=== PATIENT | female | born 1940 | race Caucasian/White ===

== ENCOUNTER 2016-10-25 14:36 | Inpatient (IN) | payer BC, MEDICARE ==
[~2016-10-25] VITALS: Ht 165.1 cm; Wt 71.0 kg
[2016-10-25 14:37] VITALS: BP 140/97; PULSE 99; RESP 18; TEMP 97.9; O2SAT 96
[2016-10-25] MEDS ORDERED: SODIUM CHLOR 0.9% 1000 ML INJ 1,000 ML IV SCH (15:34)
--- NOTE | 2016-10-25 15:37 | PD ---
HPI Chief Complaint: GI Complaint Time Seen by Provider: 15:06 Travel History International Travel<30 days: No Contact w/Intl Traveler<30days: No Traveled to known affect area: No History of Present Illness HPI 76-year-old female with history of dementia, hypertension, here with her friend for evaluation of constipation no bowel movements for the patient believes he has been one month. Patient arrived here 2 days ago from [place] to visit her friend. She denies history of abdominal surgeries. No vomiting. She is having some mild abdominal discomfort. No rectal pain or bleeding. PFSH Past Medical History Alzheimer's Disease: Yes Cardiovascular Problems: Yes (HTN ) ?: Not Menopausal: Yes Past Surgical History Section: Yes (x2) Social History Alcohol Use: Yes (occasionally) Tobacco Use: No Substance Use: No Allergies-Medications (Allergen,Severity, Reaction): Coded Allergies: No Known Allergies (Unverified , 10/25/16) Review of Systems Except as stated in HPI: all other systems reviewed are Neg Physical Exam Narrative GENERAL: Well-developed, well-nourished, sitting comfortably on stretcher, no acute distress. SKIN: Focused skin assessment warm/dry. HEAD: Atraumatic. Normocephalic. EYES: Pupils equal and round. No scleral icterus. No injection or drainage. ENT: Mucous membranes pink and moist. CARDIOVASCULAR: Regular rate and rhythm. RESPIRATORY: No accessory muscle use. Clear to auscultation. Breath sounds equal bilaterally. GASTROINTESTINAL: Abdomen soft, nondistended. Mild diffuse tenderness without peritoneal signs. Normal bowel sounds. No hernias. RECTUM: Exam performed in the presence of a female nurse. External hemorrhoids present, no thrombosed hemorrhoids, no masses, no fissures, no rectal tenderness, no stool in rectal vault. MUSCULOSKELETAL: No obvious deformities. No clubbing. No cyanosis. No edema. NEUROLOGICAL: Awake and alert. No obvious cranial nerve deficits. Motor grossly within normal limits. Normal speech. PSYCHIATRIC: Appropriate mood and affect; insight and judgment normal. Data Data Last Documented VS Vital Signs Date Time Temp Pulse Resp B/P Pulse Ox O2 Delivery O2 Flow Rate FiO2 10/25/16 15:53 16 96 Room Air 10/25/16 14:37 97.9 99 140/97 Orders Complete Blood Count With Diff (10/25/16 15:34) Comprehensive Metabolic Panel (10/25/16 15:34) Lipase (10/25/16 15:34) Prothrombin Time / Inr (Pt) (10/25/16 15:34) Act Partial Throm Time (Ptt) (10/25/16 15:34) Ct Abd/Pel W Iv Contrast(Rout) (10/25/16 15:34) Iv Access Insert/Monitor (10/25/16 15:34) Ecg Monitoring (10/25/16 15:34) Oximetry (10/25/16 15:34) Sodium Chlor 0.9% 1000 Ml Inj (Ns 1000 M (10/25/16 15:34) Sodium Chloride 0.9% Flush (Ns Flush) (10/25/16 15:45) Oral Contrast - Adult (10/25/16 15:39) Diatrizoate Liq ( Gastroview Liq) (10/25/16 15:41) Urinalysis - C+S If Indicated (10/25/16 16:08) Iohexol 350 Inj (Omnipaque 350 Inj) (10/25/16 17:37) Ciprofloxacin 400 Mg Premix (Cipro 400 M (10/25/16 18:00) Metronidazole 500 Mg Inj (Flagyl 500 Mg (10/25/16 18:00) Labs Laboratory Tests Test 10/25/16 10/25/16 15:40 16:35 White Blood Count 10.1 TH/MM3 Red Blood Count 4.32 MIL/MM3 Hemoglobin 12.9 GM/DL Hematocrit 39.0 % Mean Corpuscular Volume 90.2 FL Mean Corpuscular Hemoglobin 29.9 PG Mean Corpuscular Hemoglobin 33.2 % Concent Red Cell Distribution Width 13.3 % Platelet Count 171 TH/MM3 Mean Platelet Volume 10.3 FL Neutrophils (%) (Auto) 67.5 % Lymphocytes (%) (Auto) 20.1 % Monocytes (%) (Auto) 9.8 % Eosinophils (%) (Auto) 1.9 % Basophils (%) (Auto) 0.7 % Neutrophils # (Auto) 6.8 TH/MM3 Lymphocytes # (Auto) 2.0 TH/MM3 Monocytes # (Auto) 1.0 TH/MM3 Eosinophils # (Auto) 0.2 TH/MM3 Basophils # (Auto) 0.1 TH/MM3 CBC Comment DIFF FINAL Differential Comment Prothrombin Time 10.5 SEC Prothromb Time International 1.0 RATIO Ratio Activated Partial 29.0 SEC Thromboplast Time Sodium Level 144 MEQ/L Potassium Level 4.2 MEQ/L Chloride Level 108 MEQ/L Carbon Dioxide Level 31.1 MEQ/L Anion Gap 5 MEQ/L Blood Urea Nitrogen 20 MG/DL Creatinine 0.83 MG/DL Estimat Glomerular Filtration 67 ML/MIN Rate Random Glucose 99 MG/DL Calcium Level 9.1 MG/DL Total Bilirubin 0.5 MG/DL Aspartate Amino Transf 22 U/L (AST/SGOT) Alanine Aminotransferase 28 U/L (ALT/SGPT) Alkaline Phosphatase 74 U/L Total Protein 7.5 GM/DL Albumin 3.2 GM/DL Lipase 251 U/L Urine Color YELLOW Urine Turbidity CLEAR Urine pH 5.0 Urine Specific [place] 1.025 Urine Protein NEG mg/dL Urine Glucose (UA) NEG mg/dL Urine Ketones NEG mg/dL Urine Occult Blood NEG Urine Nitrite NEG Urine Bilirubin NEG Urine Urobilinogen LESS THAN 2.0 MG/DL Urine Leukocyte Esterase TRACE Urine WBC 2 /hpf Urine Squamous Epithelial <1 /hpf Cells Urine Calcium Oxalate Crystals MOD /hpf Urine Mucus FEW /lpf Microscopic Urinalysis Comment CULT NOT INDICATED MDM Medical Decision Making Medical Screen Exam Complete: Yes Emergency Medical Condition: Yes Differential Diagnosis Constipation, colitis, diverticulitis, cystitis, bowel obstruction unlikely Narrative Course Vital signs reviewed. CBC is unremarkable. CMP is unremarkable. Lipase is 251. UA shows trace leukocyte esterase, moderate calcium oxalate crystals, few mucus , negative nitrites, not suggestive of UTI. CT abdomen pelvis: CONCLUSION: Acute moderate to severe sigmoid colon diverticulitis with a small intramural abscess. No drainable abscess. No perforation or obstruction. Case discussed with colorectal surgeon Dr. Westfall. Patient will be admitted to the medical service and she will see the patient in consultation. The patient and the patient's friend were made aware of all findings and plan for admission. Case discussed with hospitalist Dr. Fragoso who will admit the patient to her service. Diagnosis Primary Impression: Diverticulitis of intestine with abscess Qualified Code: K57.20 - Diverticulitis of large intestine with abscess, unspecified bleeding status Admitting Information Admitting Physician Requests: Admit Zana Gr MD October 25, 2016 15:37
[2016-10-25] MEDS ORDERED: DIATRIZOATE MEGLUM/DIATRIZOATE SOD 9 ML CUP ONE (15:41)
[2016-10-25] MEDS ORDERED: SODIUM CHLORIDE 0.9% FLUSH 10 ML FLUSH IV FLUSH PRN ×2 (15:45→20:15)
[2016-10-25 15:53] VITALS: RESP 16; O2SAT 96
[2016-10-25 16:28] LABS: AUTOMATED NEUTROPHIL # 6.8 TH/MM3 (1.8-7.7); BASOPHIL # 0.1 TH/MM3 (0-0.2); BASOPHIL % 0.7 % (0.0-2.0); EOSINOPHIL # 0.2 TH/MM3 (0-0.4); EOSINOPHIL % 1.9 % (0.0-4.0); HEMO FLAGS DIFF FINAL; LYMPH % 20.1 % (9.0-44.0); MEAN CELL VOLUME 90.2 FL (80.0-100.0); MEAN CORPUSCULAR HEMOGLOBIN 29.9 PG (27.0-34.0); MEAN CORPUSCULAR HGB CONC 33.2 % (32.0-36.0); MONO % 9.8 % (0.0-8.0); NEUT % 67.5 % (16.0-70.0); PLATELET COUNT 171 TH/MM3 (150-450); RED BLOOD COUNT 4.32 MIL/MM3 (4.00-5.30); RED CELL DISTRIBUTION WIDTH 13.3 % (11.6-17.2); WHITE BLOOD COUNT 10.1 TH/MM3 (4.0-11.0)
[2016-10-25 16:42] LABS: PROTHROMBIN TIME - PATIENT 10.5 SEC (9.8-11.6)
[2016-10-25 16:53] LABS: ANION GAP 5 MEQ/L (5-15); AST (GOT) 22 U/L (15-37); BICARBONATE 31.1 MEQ/L (21.0-32.0); BLOOD UREA NITROGEN 20 MG/DL (7-18); CHLORIDE 108 MEQ/L (98-107); GLOMERULAR FILTRATION RATE 67 ML/MIN (>89); POTASSIUM 4.2 MEQ/L (3.5-5.1); SODIUM (NA) 144 MEQ/L (136-145)
[2016-10-25 16:56] LABS: ALKALINE PHOSPHATASE 74 U/L (45-117); ALT (GPT) 28 U/L (10-53); TOTAL BILIRUBIN ADULT 0.5 MG/DL (0.2-1.0)
[2016-10-25 17:19] LABS: BLOOD, URINE NEG (NEG); CALCIUM OXALATE CRYSTALS,URINE MOD /hpf; COMMENT (UR) CULT NOT INDICATED; CULTURE IF INDICATED CULT NOT INDICATED; GLUCOSE,URINE NEG (NEG); KETONE, URINE NEG (NEG); MUCUS URINE FEW /lpf (OCC); NITRITE,URINE NEG (NEG); SQUAMOUS EPITHELIAL CELL URINE <1 /hpf (0-5); URINE COLOR YELLOW (YELLW/STRAW)
--- NOTE | 2016-10-25 17:35 | RADRPT ---
EXAM DATE/TIME: 10/25/2016 17:05 [facility] COMPARISON: No previous studies available for comparison. INDICATIONS : Abdomen pain. IV CONTRAST: 80 cc Omnipaque 350 (iohexol) IV ORAL CONTRAST: Prescribed oral contrast ingested. RADIATION DOSE: 5.61 CTDIvol (mGy) MEDICAL HISTORY : Cardiovascular disease. Alzheimer's. Hypertension. SURGICAL HISTORY : None. ENCOUNTER: Initial ACUITY: 3 days PAIN SCALE: 4/10 LOCATION: Bilateral abdomen. TECHNIQUE: Volumetric scanning of the abdomen and pelvis was performed. Using automated exposure control and ad justment of the mA and/or kV according to patient size, radiation dose was kept as low as reasonably achievable to obtain optimal diagnostic quality images. FINDINGS: LOWER LUNGS: The visualized lower lungs are clear. LIVER: Homogeneous density without lesion. There is no dilation of the biliary tree. No calcified gallston es. SPLEEN: Normal size without lesion. PANCREAS: Within normal limits. KIDNEYS: Normal in size and shape. There is no mass, stone or hydronephrosis. ADRENAL GLANDS: Within normal limits. VASCULAR: There is no aortic aneurysm. BOWEL/MESENTERY: Focal wall thickening and inflammatory changes are seen of the sigmoid colon in the setting of divert iculosis, compatible with moderate to severe acute diverticulitis. There is an approximately 12 x 23 x 12 mm rim-enhancing fluid and air collection within the wall of the sigmoid colon, series 2 image 7 0. No extraluminal abscess. ABDOMINAL WALL: Within normal limits. RETROPERITONEUM: There is no lymphadenopathy. BLADDER: No wall thickening or mass. REPRODUCTIVE: Within normal limits. INGUINAL: There is no lymphadenopathy or hernia. MUSCULOSKELETAL: Within normal limits for patient age. CONCLUSION: Acute moderate to severe sigmoid colon diverticulitis with a small intramural abscess. No drainable a bscess. No perforation or obstruction. Sergey Hernandez MD on October 25, 2016 at 17:31 Board Certified Radiologist. This report was verified electronically.
[2016-10-25] MEDS ORDERED: IOHEXOL 350 MG/ML 10 ML VIAL (for RAD DIAG) IV ONE (17:37)
[2016-10-25] MEDS ORDERED: metroNIDAZOLE 500 MG INJ 100 ML IV ONE (18:00)
[2016-10-25] MEDS ORDERED: CIPROFLOXACIN 400 MG PREMIX 200 ML IV ONE (18:00)
[2016-10-25 19:16] VITALS: BP 128/68; PULSE 93; RESP 18; TEMP 98.9; O2SAT 95
[2016-10-25] MEDS ORDERED: BISO5TAB2 PO (19:28)
[2016-10-25] MEDS ORDERED: CYAN5SUB SL (19:28)
[2016-10-25] MEDS ORDERED: MIRTA15 PO (19:28)
[2016-10-25] MEDS ORDERED: CALTTAB PO (19:28)
[2016-10-25] MEDS ORDERED: GLUC1CAP16 PO (19:28)
[2016-10-25] MEDS ORDERED: DENO60P SQ (19:28)
[2016-10-25] MEDS ORDERED: MEMA1TAB PO (19:28)
[2016-10-25] MEDS ORDERED: FISH500C PO (19:28)
[2016-10-25] MEDS ORDERED: ARIC10TA PO (19:28)
[2016-10-25] MEDS ORDERED: ATOR10TA15 PO (19:28)
[2016-10-25] MEDS ORDERED: BISACODYL 10 MG SUPP RECTAL PRN (20:15)
[2016-10-25] MEDS ORDERED: MORPHINE SULFATE 4 MG/ML INJ IV PRN ×2 (20:15)
[2016-10-25] MEDS ORDERED: ONDANSETRON HCL 4 MG/2 ML VIAL IVP PRN (20:15)
--- NOTE | 2016-10-25 20:19 | HHI.HP ---
[facility] No Primary Care Physician Admission Diagnosis acute diverticulitis with abscess Diagnoses: (1) Diverticulitis of intestine with abscess Diagnosis: Principal (2) Abdominal pain Diagnosis: Principal (3) Dehydration Diagnosis: Principal (4) HTN (hypertension) Diagnosis: Principal (5) Dementia Diagnosis: Principal Travel History International Travel<30 Days: No Contact w/Intl Traveler <30 Da: No Traveled to Known Affected Are: No History of Present Illness This is a 76-year-old female with a PMH of HTN, Hyperlipidemia and Dementia who presented to the ER with complaints of abdominal pain for approx 1month. Also notes constipation w/ no recent BM in approx 10 days. Recently arrived from [facility] to visit a friend and was urged by friend to seek medical attention. Denies fever, chills, nausea, vomiting or diarrhea. On arrival, BP 140/97, HR 99, O2 sat 96% on RA, Afebrile. Chemistry essentially unremarkable except for GFR 67, BUN 20. UA trace LAE. CT Abd/Pelvis w/ acute moderate to severe sigmoid colon diverticulitis with small intramural abscess. Dr. Westfall consulted by ER physician, will evaluate in a.m. for possible intervention/ drainage. S/p Cipro/Flagyl in ER. Review of Systems Except as stated in HPI: all other systems reviewed are Neg ROS: 14 point review of systems otherwise negative. Past Family Social History Past Medical History PMH: HTN, Hyperlipidemia and Dementia Past Surgical History PAST SURGICAL HISTORY: Allergies: Coded Allergies: No Known Allergies (Unverified , 10/25/16) Family History PAST FAMILY HISTORY: Reviewed. No h/o DM or CAD Social History PAST SOCIAL HISTORY: Occasional alcohol. Negative for tobacco or drugs. Physical Exam Vital Signs Vital Signs Date Time Temp Pulse Resp B/P Pulse Ox O2 Delivery O2 Flow Rate FiO2 10/25/16 19:16 98.9 93 18 128/68 95 10/25/16 15:53 16 96 Room Air 10/25/16 14:37 97.9 99 18 140/97 96 Room Air Physical Exam PE: GENERAL: Pleasant elderly white female in no acute distress. HEENT: PERRLA, EOMI. No scleral icterus or conjunctival pallor. No lid lag or facial droop. CARDIOVASCULAR: Regular rate and rhythm. No obvious murmurs to auscultation. No chest tenderness to palpation. RESPIRATORY: No obvious rhonchi or wheezing. Clear to auscultation. Breath sounds equal bilaterally. GASTROINTESTINAL: Abdomen soft, mild generalized tenderness to palpation, nondistended. BS normal. MUSCULOSKELETAL: Extremities without clubbing, cyanosis, or edema. No obvious deformities. NEUROLOGICAL: Awake, alert and oriented x4. No focal neurologic deficits. Moving both upper and lower extremities spontaneously. Laboratory Laboratory Tests Test 10/25/16 10/25/16 15:40 16:35 White Blood Count 10.1 Red Blood Count 4.32 Hemoglobin 12.9 Hematocrit 39.0 Mean Corpuscular Volume 90.2 Mean Corpuscular Hemoglobin 29.9 Mean Corpuscular Hemoglobin 33.2 Concent Red Cell Distribution Width 13.3 Platelet Count 171 Mean Platelet Volume 10.3 Neutrophils (%) (Auto) 67.5 Lymphocytes (%) (Auto) 20.1 Monocytes (%) (Auto) 9.8 Eosinophils (%) (Auto) 1.9 Basophils (%) (Auto) 0.7 Neutrophils # (Auto) 6.8 Lymphocytes # (Auto) 2.0 Monocytes # (Auto) 1.0 Eosinophils # (Auto) 0.2 Basophils # (Auto) 0.1 CBC Comment DIFF FINAL Differential Comment Prothrombin Time 10.5 Prothromb Time International 1.0 Ratio Activated Partial 29.0 Thromboplast Time Sodium Level 144 Potassium Level 4.2 Chloride Level 108 Carbon Dioxide Level 31.1 Anion Gap 5 Blood Urea Nitrogen 20 Creatinine 0.83 Estimat Glomerular Filtration 67 Rate Random Glucose 99 Calcium Level 9.1 Total Bilirubin 0.5 Aspartate Amino Transf 22 (AST/SGOT) Alanine Aminotransferase 28 (ALT/SGPT) Alkaline Phosphatase 74 Total Protein 7.5 Albumin 3.2 Lipase 251 Urine Color YELLOW Urine Turbidity CLEAR Urine pH 5.0 Urine Specific [place] 1.025 Urine Protein NEG Urine Glucose (UA) NEG Urine Ketones NEG Urine Occult Blood NEG Urine Nitrite NEG Urine Bilirubin NEG Urine Urobilinogen LESS THAN 2.0 Urine Leukocyte Esterase TRACE Urine WBC 2 Urine Squamous Epithelial <1 Cells Urine Calcium Oxalate Crystals MOD Urine Mucus FEW Microscopic Urinalysis Comment CULT NOT INDICATED Result Diagram: 5/21/17 1540 10/25/16 1540 Assessment and Plan Problem List: (1) Diverticulitis of intestine with abscess ICD Code: K57.80 Status: Acute (2) Abdominal pain ICD Code: R10.9 Status: Acute (3) Dehydration ICD Code: E86.0 Status: Acute (4) HTN (hypertension) ICD Code: I10 Status: Acute (5) Dementia ICD Code: F03.90 Status: Acute Assessment and Plan A/P: 1. Diverticulitis: Acute Diverticulitis w/ Intramural Abscess, seen on CT Abd/ Pelvis, images reviewed by me. Dr. Westfall consulted by ER physician, abscess appears amenable to drainage, will eval in am. S/p Cipro/Flagyl in ER, continue w/ IV Abx, analgesics/antiemetics as needed. 2. Abdominal Pain: Secondary to above, improved after pain medication, will continue as needed. 3. Dehydration: GFR 67, BUN 20, Creatinine normal. U/a negative for UTI. IVF for hydration, repeat labs in am. 4. HTN: Controlled. BP 120-140's systolic. Hold HCTZ for now in light of dehydration/low GFR. 5. DVT Prophylaxis: SCD/Teds. 6. Social work for d/c planning as needed. 7. Case discussed w/ ER physician at length. Physician Certification 2 Midnight Certification Type: Admission for Inpatient Services Order for Inpatient Services The services are ordered in accordance with Medicare regulations or non- Medicare payer requirements, as applicable. In the case of services not specified as inpatient-only, they are appropriately provided as inpatient services in accordance with the 2-midnight benchmark. Estimated LOS (days): 2 days is the estimated time the patient will need to remain in the hospital, assuming treatment plan goals are met and no additional complications. Post-Hospital Plan: Not yet determined Problem Qualifiers (1) Diverticulitis of intestine with abscess: Qualified Code: K57.20 - Diverticulitis of large intestine with abscess, unspecified bleeding status Chantelle Fragoso MD October 25, 2016 20:19
[2016-10-25] MEDS: SODIUM CHLORIDE 0.9% FLUSH 10 ML FLUSH IV FLUSH SCH (21:00)
[2016-10-25] MEDS: SODIUM CHLOR 0.9% 1000 ML INJ 1,000 ML IV SCH (21:41)
[2016-10-25] MEDS: MIRTAZAPINE 15 MG TAB PO SCH (21:41)
[2016-10-25 22:53] VITALS: BP 109/56; PULSE 87; RESP 18; TEMP 98.4; O2SAT 100
[2016-10-26 01:30] VITALS: BP 110/66; PULSE 96; RESP 16; TEMP 98.4; O2SAT 96
[2016-10-26] MEDS: metroNIDAZOLE 500 MG INJ 100 ML IV SCH ×3 (02:05→18:36)
[2016-10-26 04:00] VITALS: BP 109/63; PULSE 92; RESP 20; TEMP 98.5; O2SAT 94
[2016-10-26 05:15] LABS: AUTOMATED NEUTROPHIL # 5.4 TH/MM3 (1.8-7.7); BASOPHIL % 0.3 % (0.0-2.0); EOSINOPHIL # 0.2 TH/MM3 (0-0.4); EOSINOPHIL % 2.1 % (0.0-4.0); HEMO FLAGS DIFF FINAL; LYMPH % 20.9 % (9.0-44.0); LYMPHOCYTE # 1.7 TH/MM3 (1.0-4.8); MEAN CORPUSCULAR HEMOGLOBIN 30.3 PG (27.0-34.0); MONO % 10.9 % (0.0-8.0); NEUT % 65.8 % (16.0-70.0); PLATELET COUNT 149 TH/MM3 (150-450); RED BLOOD COUNT 3.94 MIL/MM3 (4.00-5.30); RED CELL DISTRIBUTION WIDTH 13.2 % (11.6-17.2); WHITE BLOOD COUNT 8.2 TH/MM3 (4.0-11.0)
[2016-10-26] MEDS: SODIUM CHLOR 0.9% 1000 ML INJ 1,000 ML IV SCH ×3 (05:15→23:41)
[2016-10-26 05:30] LABS: ALT (GPT) 27 U/L (10-53); ANION GAP 8 MEQ/L (5-15); AST (GOT) 23 U/L (15-37); BICARBONATE 27.5 MEQ/L (21.0-32.0); BLOOD UREA NITROGEN 11 MG/DL (7-18); CHLORIDE 110 MEQ/L (98-107); GLOMERULAR FILTRATION RATE 91 ML/MIN (>89); POTASSIUM 3.9 MEQ/L (3.5-5.1); SODIUM (NA) 145 MEQ/L (136-145)
[2016-10-26 05:32] LABS: ALKALINE PHOSPHATASE 69 U/L (45-117); TOTAL BILIRUBIN ADULT 0.4 MG/DL (0.2-1.0)
[2016-10-26 07:38] VITALS: BP 112/72; PULSE 90; RESP 18; TEMP 97.7; O2SAT 96
[2016-10-26] MEDS: SODIUM CHLORIDE 0.9% FLUSH 10 ML FLUSH IV FLUSH SCH ×2 (09:24→20:13)
[2016-10-26] MEDS: CIPROFLOXACIN 400 MG PREMIX 200 ML IV SCH ×2 (09:24→20:12)
[2016-10-26] MEDS: DONEPEZIL HCL 5 MG TAB PO SCH (09:24)
[2016-10-26] MEDS: MEMANTINE HCL 5 MG TAB PO SCH (09:51)
[2016-10-26 11:25] VITALS: BP 124/79; PULSE 81; RESP 18; TEMP 96; O2SAT 97
[2016-10-26 16:00] VITALS: BP 141/74; PULSE 96; RESP 18; TEMP 97.6; O2SAT 96
[2016-10-26] MEDS: ACETAMINOPHEN 325 MG TAB PO PRN ×2 (16:29→23:40)
--- NOTE | 2016-10-26 18:35 | HHI.PR ---
Subjective Remarks patient seen with good friend inside the room very anxious , currently denies any nausea or vomiting right now, no abdominal pain + flatus- states + constipation and strains during BM states had colonoscopy done in the past- + diverticuloses patient is hyperexcitable, volatile Objective Vitals Vital Signs Date Time Temp Pulse Resp B/P Pulse Ox O2 Delivery O2 Flow Rate FiO2 10/26/16 17:30 18 10/26/16 16:00 97.6 96 18 141/74 96 10/26/16 11:25 96.0 81 18 124/79 97 10/26/16 07:38 97.7 90 18 112/72 96 10/26/16 04:00 98.5 92 20 109/63 94 10/26/16 01:30 98.4 96 16 110/66 96 10/25/16 22:53 98.4 87 18 109/56 100 Room Air 10/25/16 19:16 98.9 93 18 128/68 95 I/O 10/25/16 10/25/16 10/25/16 10/26/16 10/26/16 10/26/16 07:00 15:00 23:00 07:00 15:00 23:00 Intake Total 600 ml Balance 600 ml Intake Oral 600 ml # Voids 1 2 # Bowel Movements 0 0 Result Diagram: 10/26/16 0409 10/26/16 0409 Imaging Last Impressions Abdomen/Pelvis CT 10/25/16 1534 Signed Impressions: Service Date/Time: Tuesday, October 25, 2016 17:05 - CONCLUSION: Acute moderate to severe sigmoid colon diverticulitis with a small intramural abscess. No drainable abscess. No perforation or obstruction. Sergey Hernandez MD Objective Remarks awake and alert, appears manic anicteric lungs clear regular rhythm abdomen soft, nontender, good bowel sounds, no guarding or rigidity extremities no edema A/P Problem List: (1) Diverticulitis of intestine with abscess ICD Code: K57.80 Status: Acute (2) Abdominal pain ICD Code: R10.9 Status: Acute (3) Dehydration ICD Code: E86.0 Status: Acute (4) HTN (hypertension) ICD Code: I10 Status: Acute (5) Dementia ICD Code: F03.90 Status: Acute Assessment and Plan 76 years old female, appears manic and highly excitable ? dementia. Had colonoscopies in the past - + diverticuloses per good friend Acute Diverticulitis w/ Intramural Abscess, seen on CT Abd/Pelvis. Dr. Westfall consulted. continue IV antibiotics. IVF. Abdominal Pain: - improved . prn pain medication, will continue as needed. Abdominal exam- benign Dehydration: GFR 67, BUN 20, Creatinine normal. U/a negative for UTI. IVF for hydration HTN: Controlled. BP 120-140's systolic. HCTZ for now in light of dehydration /low GFR. Atrial fibrillation, ? new onset. Monitor in telemetry. appears manic DVT Prophylaxis: SCD/Teds. patient up and ambulating Dementia-- appears in a manic state. friend travels around with her takes notes -. "volatile" per good friend. Monitor. d/w patient and best friend at bedside Problem Qualifiers (1) Diverticulitis of intestine with abscess: Qualified Code: K57.20 - Diverticulitis of large intestine with abscess, unspecified bleeding status Adria Borges MD October 26, 2016 18:35
[2016-10-26 20:00] VITALS: BP 132/81; PULSE 101; PULSE 93; RESP 16; TEMP 98; O2SAT 95
[2016-10-26] MEDS: MIRTAZAPINE 15 MG TAB PO SCH (20:12)
[2016-10-27] VITALS (15 sets, daily range): BP systolic 131–163; BP diastolic 64–113; PULSE 90–140; RESP 16–22; TEMP 95.8–98.1; O2SAT 93–96
[2016-10-27] MEDS: metroNIDAZOLE 500 MG INJ 100 ML IV SCH ×3 (02:04→18:06)
--- NOTE | 2016-10-27 06:00 | MB ---
cc: FRANCOIS SMITH M.D. DATE OF CONSULTATION October 26, 2016 CHIEF COMPLAINT Diverticulitis with abscess. HISTORY OF PRESENT ILLNESS The patient is a 76-year-old female who came to the emergency department yesterday with a history of chronic abdominal pain for about a month. She has a history of chronic constipation, and states she may not have had a bowel movement for up to a month. However, she does have some baseline dementia evidently. She had denies any nausea, vomiting, fevers, chills or diarrhea. She denies any melena or hematochezia. She has had a colonoscopy about three years ago which showed diverticulosis but no other abnormalities. She was evaluated in the emergency department and CT scan revealed evidence of moderate to severe diverticulitis with a small intramural abscess. PAST MEDICAL HISTORY 1. Hypertension. 2. Dementia. 3. Hyperlipidemia. PAST SURGICAL HISTORY . ALLERGIES None. MEDICATIONS See nurse's notes for details. SOCIAL HISTORY The patient denies any tobacco or illicit substances but does have occasional alcohol. REVIEW OF SYSTEMS The review of systems is negative for chest pain, shortness of breath, difficulty with mood, difficulty with ambulation or chronic pain syndrome. PHYSICAL EXAMINATION GENERAL: An elderly female who appears somewhat anxious. NEURO: Grossly intact. SKIN: Warm and dry. HEAD: Normocephalic, atraumatic. CARDIOVASCULAR: Regular rate. CHEST: Breathing is symmetric bilaterally, nonlabored. ABDOMEN: Soft, nondistended, mildly tender to palpation, worse in the left lower quadrant. There is no guarding or rebound. EXTREMITIES: No edema. LABORATORY WORK White count of 8.2, hemoglobin 11.9 and platelets of 149. Chemistry is essentially normal as are coags and urinalysis. IMPRESSION Diverticulitis with intramural abscess PLAN Because of the intramural nature of the abscess, I do think that bowel rest for another couple of days would be prudent. However, she will probably be able to be discharged within the next two or three days. The natural history of diverticulitis as well as the standard indications for diverticular surgery was discussed with the patient and her friend. Hopefully we can get her out of the hospital and she can heal and we can consider possible interval surgery down the road. If, however, she fails to improve or worsens, we may need to consider more emergent surgery. Thank you very much for your kind referral. MD HILARIO Coker/LESIA /6:18 PM /5:54 AM MTDDanielle
[2016-10-27] MEDS: CIPROFLOXACIN 400 MG PREMIX 200 ML IV SCH ×2 (07:39→20:36)
[2016-10-27] MEDS: MEMANTINE HCL 5 MG TAB PO SCH (07:41)
[2016-10-27] MEDS: DONEPEZIL HCL 5 MG TAB PO SCH (07:41)
[2016-10-27] MEDS: SODIUM CHLORIDE 0.9% FLUSH 10 ML FLUSH IV FLUSH SCH ×2 (07:43→21:00)
--- NOTE | 2016-10-27 09:12 | HHI.PR ---
Subjective Remarks Diverticulitis Confused, anxious, denies abdominal pain Objective Vital Signs Date Time Temp Pulse Resp B/P Pulse Ox O2 Delivery O2 Flow Rate FiO2 10/27/16 04:00 97.0 114 18 131/72 94 10/27/16 00:00 97.1 90 16 136/64 94 10/26/16 20:00 101 10/26/16 20:00 98.0 93 16 132/81 95 10/26/16 17:30 18 10/26/16 16:00 97.6 96 18 141/74 96 10/26/16 11:25 96.0 81 18 124/79 97 I/O 10/26/16 10/26/16 10/26/16 10/27/16 10/27/16 10/27/16 07:00 15:00 23:00 07:00 15:00 23:00 Intake Total 600 ml 480 ml 480 ml Balance 600 ml 480 ml 480 ml Intake Oral 600 ml 480 ml 480 ml # Voids 1 2 2 2 # Bowel Movements 0 0 1 Result Diagram: 10/26/16 0409 10/26/16 0409 Objective Remarks Abdomen soft, nondistended, minimally tender Assessment and Plan Assessment and Plan Would still go slow with PO - clears today, fulls tomorrow With intramural abscess, worry is if it bursts, could result in perforation Possibly home tomorrow or Radha Westfall MD October 27, 2016 09:12
[2016-10-27] MEDS: POLYETHYLENE GLYCOL 17 GM PKG PO SCH ×3 (11:03→18:03)
[2016-10-27] MEDS: SODIUM CHLOR 0.9% 1000 ML INJ 1,000 ML IV SCH (11:04)
--- NOTE | 2016-10-27 14:17 | HHI.PR ---
Subjective Remarks tachycardic but asymptomatic patient appears in a manic mode place on telemetry viewed meds- patient on Bisoprolol - 5 mg as OP /HCTZ 6.5 mg as OP-= not available here Objective Vitals Vital Signs Date Time Temp Pulse Resp B/P Pulse Ox O2 Delivery O2 Flow Rate FiO2 10/27/16 12:00 95.8 94 20 145/113 93 10/27/16 08:00 96.8 98 20 147/86 95 10/27/16 04:00 97.0 114 18 131/72 94 10/27/16 00:00 97.1 90 16 136/64 94 10/26/16 20:00 101 10/26/16 20:00 98.0 93 16 132/81 95 10/26/16 17:30 18 10/26/16 16:00 97.6 96 18 141/74 96 I/O 10/26/16 10/26/16 10/26/16 10/27/16 10/27/16 10/27/16 06:59 14:59 22:59 06:59 14:59 22:59 Intake Total 600 ml 480 ml 480 ml Balance 600 ml 480 ml 480 ml Intake Oral 600 ml 480 ml 480 ml # Voids 1 2 2 2 # Bowel Movements 0 0 1 Result Diagram: 10/26/16 0409 10/26/16 0409 Imaging Last Impressions Abdomen/Pelvis CT 10/25/16 1534 Signed Impressions: Service Date/Time: Tuesday, October 25, 2016 17:05 - CONCLUSION: Acute moderate to severe sigmoid colon diverticulitis with a small intramural abscess. No drainable abscess. No perforation or obstruction. Sergey Hernandez MD Objective Remarks awake and alert, appears manic anicteric lungs clear irregular rhythm HR variable abdomen soft, nontender, good bowel sounds, no guarding or rigidity extremities no edema A/P Problem List: (1) Diverticulitis of intestine with abscess ICD Code: K57.80 Status: Acute (2) Abdominal pain ICD Code: R10.9 Status: Acute (3) Dehydration ICD Code: E86.0 Status: Acute (4) HTN (hypertension) ICD Code: I10 Status: Acute (5) Dementia ICD Code: F03.90 Status: Acute Assessment and Plan 76 years old female, appears manic and highly excitable ? dementia. Had colonoscopies in the past - + diverticuloses per good friend Acute Diverticulitis w/ Intramural Abscess, seen on CT Abd/Pelvis. Dr. Westfall consulted. continue IV antibiotics. IVF. Cipro/Flagyl. Start clears. Abdominal Pain: - improved . prn pain medication, will continue as needed. Abdominal exam- benign Dehydration: GFR 67, BUN 20, Creatinine normal. U/a negative for UTI. IVF for hydration HTN: - some elevated readings BP 120-140's systolic. Hold HCTZ for now in light of dehydration/low GFR. r Atrial fibrillation- rate variable ? new onset. start on BB- Lopressor 12.5 mg po q 8 with hold parameters. Patient was on Bisoprolol/HCTZ 5 mg/6.25 mg po combination as OP check TSH DVT Prophylaxis: SCD/Teds. patient up and ambulating Dementia-- appears in a manic state. friend travels around with her takes notes -. "volatile" per good friend. Monitor. d/w patient and best friend at bedside Problem Qualifiers (1) Diverticulitis of intestine with abscess: Qualified Code: K57.20 - Diverticulitis of large intestine with abscess, unspecified bleeding status Adria Borges MD October 27, 2016 14:16
[2016-10-27] MEDS ORDERED: PILL SPLITTER OTHER PRN (14:45)
[2016-10-27] MEDS ORDERED: LORazepam 2 MG/ML VIAL IV PUSH ONE (14:45)
[2016-10-27] MEDS: METOPROLOL TARTRATE 25 MG TAB PO SCH ×2 (15:40→21:19)
[2016-10-27] MEDS: ACETAMINOPHEN 325 MG TAB PO PRN (18:27)
[2016-10-27] MEDS: MIRTAZAPINE 15 MG TAB PO SCH (21:19)
[2016-10-28] VITALS (24 sets, daily range): BP systolic 127–159; BP diastolic 60–101; PULSE 80–120; RESP 16–24; TEMP 97.9–98.5; O2SAT 91–96
[2016-10-28] MEDS: POLYETHYLENE GLYCOL 17 GM PKG PO SCH ×4 (00:02→16:54)
[2016-10-28] MEDS: SODIUM CHLOR 0.9% 1000 ML INJ 1,000 ML IV SCH ×2 (02:14→08:36)
[2016-10-28] MEDS: metroNIDAZOLE 500 MG INJ 100 ML IV SCH ×3 (02:14→17:10)
[2016-10-28] MEDS: METOPROLOL TARTRATE 25 MG TAB PO SCH ×3 (06:16→20:16)
--- NOTE | 2016-10-28 07:50 | HHI.PR ---
Subjective Remarks Diverticulitis comfortable Objective Vital Signs Date Time Temp Pulse Resp B/P Pulse Ox O2 Delivery O2 Flow Rate FiO2 10/28/16 06:00 97 10/28/16 05:00 92 10/28/16 04:00 89 10/28/16 03:30 97.9 109 20 138/93 95 10/28/16 03:00 94 10/28/16 02:00 86 10/28/16 01:00 90 10/28/16 00:00 98.2 98 20 155/99 91 10/28/16 00:00 100 10/27/16 23:00 94 10/27/16 22:00 94 10/27/16 21:00 102 10/27/16 20:00 98.1 93 20 146/83 94 10/27/16 20:00 96 10/27/16 19:00 110 10/27/16 18:00 103 10/27/16 17:00 94 10/27/16 16:20 104 10/27/16 16:15 96 18 146/99 96 10/27/16 15:31 97.1 116 20 163/86 95 10/27/16 15:00 140 22 146/100 95 10/27/16 12:00 95.8 94 20 145/113 93 10/27/16 08:00 96.8 98 20 147/86 95 I/O 10/27/16 10/27/16 10/27/16 10/28/16 10/28/16 10/28/16 07:00 15:00 23:00 07:00 15:00 23:00 Intake Total 480 ml 240 ml 1780 ml Output Total 300 ml Balance 480 ml 240 ml 1480 ml Intake Oral 480 ml 240 ml 480 ml IV Total 1300 ml Output Urine Total 300 ml # Voids 2 4 2 # Bowel Movements 1 2 2 Result Diagram: 10/26/16 0409 10/26/16 0409 Objective Remarks Abdomen soft, nondistended, nontender Assessment and Plan Assessment and Plan Try full liquid today, if tolerates low residue diet this pm Possible discharge tomorrow Radha Westfall MD October 28, 2016 07:50
[2016-10-28] MEDS: DONEPEZIL HCL 5 MG TAB PO SCH (08:35)
[2016-10-28] MEDS: ACETAMINOPHEN 325 MG TAB PO PRN (08:35)
[2016-10-28] MEDS: MEMANTINE HCL 5 MG TAB PO SCH (08:35)
[2016-10-28] MEDS: SODIUM CHLORIDE 0.9% FLUSH 10 ML FLUSH IV FLUSH SCH ×2 (08:36→20:16)
[2016-10-28] MEDS: CIPROFLOXACIN 400 MG PREMIX 200 ML IV SCH ×2 (08:39→20:00)
[2016-10-28 09:12] LABS: BICARBONATE 22.1 MEQ/L (21.0-32.0); POTASSIUM 3.2 MEQ/L (3.5-5.1)
--- NOTE | 2016-10-28 09:18 | HHI.PR ---
Subjective Remarks no complains seen with friend at bedside Objective Vitals Vital Signs Date Time Temp Pulse Resp B/P Pulse Ox O2 Delivery O2 Flow Rate FiO2 10/28/16 06:00 97 10/28/16 05:00 92 10/28/16 04:00 89 10/28/16 03:30 97.9 109 20 138/93 95 10/28/16 03:00 94 10/28/16 02:00 86 10/28/16 01:00 90 10/28/16 00:00 98.2 98 20 155/99 91 10/28/16 00:00 100 10/27/16 23:00 94 10/27/16 22:00 94 10/27/16 21:00 102 10/27/16 20:00 98.1 93 20 146/83 94 10/27/16 20:00 96 10/27/16 19:00 110 10/27/16 18:00 103 10/27/16 17:00 94 10/27/16 16:20 104 10/27/16 16:15 96 18 146/99 96 10/27/16 15:31 97.1 116 20 163/86 95 10/27/16 15:00 140 22 146/100 95 10/27/16 12:00 95.8 94 20 145/113 93 I/O 10/27/16 10/27/16 10/27/16 10/28/16 10/28/16 10/28/16 07:00 15:00 23:00 07:00 15:00 23:00 Intake Total 480 ml 240 ml 1780 ml Output Total 300 ml Balance 480 ml 240 ml 1480 ml Intake Oral 480 ml 240 ml 480 ml IV Total 1300 ml Output Urine Total 300 ml # Voids 2 4 2 # Bowel Movements 1 2 2 Result Diagram: 10/26/16 0409 10/28/16 0800 Imaging Last Impressions Abdomen/Pelvis CT 10/25/16 1534 Signed Impressions: Service Date/Time: Tuesday, October 25, 2016 17:05 - CONCLUSION: Acute moderate to severe sigmoid colon diverticulitis with a small intramural abscess. No drainable abscess. No perforation or obstruction. Sergey Hernandez MD Objective Remarks awake and alert, anicteric lungs clear irregular rhythm HR variable abdomen soft, nontender, good bowel sounds, no guarding or rigidity extremities no edema neuro exam- unremarkable A/P Problem List: (1) Diverticulitis of intestine with abscess ICD Code: K57.80 Status: Acute (2) Abdominal pain ICD Code: R10.9 Status: Acute (3) Dehydration ICD Code: E86.0 Status: Acute (4) HTN (hypertension) ICD Code: I10 Status: Acute (5) Dementia ICD Code: F03.90 Status: Acute Assessment and Plan 76 years old female, appears manic and highly excitable ? dementia. Had colonoscopies in the past - + diverticuloses per good friend Acute Diverticulitis w/ Intramural Abscess, seen on CT Abd/Pelvis. Dr. Westfall consulted. continue IV antibiotics. IVF. Advance diet- full liquids Abdominal Pain: - improved . prn pain medication, will continue as needed. Abdominal exam- benign Dehydration: GFR 67, BUN 20, Creatinine normal. U/a negative for UTI. IVF for hydration HTN: Controlled. BP 120-140's systolic. HCTZ for now in light of dehydration /low GFR. as OP was on Biso/HCTZ combination Atrial fibrillation, ? new onset. Monitor in telemetry. - started on Lopressor= adjust. start ASA. check TSH Hypokalemia- replace DVT Prophylaxis: SCD/Teds. patient up and ambulating Dementia-- appears in a manic state. friend travels around with her takes notes -. "volatile" per good friend. Monitor. d/w patient and best friend at bedside needs to set up with a PCP in [place]- when arrived there Problem Qualifiers (1) Diverticulitis of intestine with abscess: Qualified Code: K57.20 - Diverticulitis of large intestine with abscess, unspecified bleeding status Adria Borges MD October 28, 2016 09:17
[2016-10-28] MEDS: ASPIRIN EC 325 MG TABEC PO SCH (09:49)
[2016-10-28] MEDS: NS + KCL 20 MEQ INJ 1,000 ML IV SCH (09:49)
[2016-10-28] MEDS ORDERED: POTASSIUM CHLORIDE 10 MEQ CONTROLLED RELEASE TAB PO ONE (10:00)
--- NOTE | 2016-10-28 19:32 | EKG ---
Date Performed: 10/28/2016 Time Performed: 00:06:02 PTAGE: 76 years EKG: Atrial fibrillation Possible anteroseptal infarct - age undetermined Inferior/lateral ST-T changes are nonspecific Generalized low QRS voltages Abnormal ECG NO PREVIOUS TRACING DOCTOR: Nany Brennan Interpretating Date/Time 10/28/2016 19:31:27
[2016-10-28] MEDS: MIRTAZAPINE 15 MG TAB PO SCH (20:16)
[2016-10-28] MEDS ORDERED: POTASSIUM CHLORIDE 20 MEQ CONTROLLED RELEASE TAB PO ONE (21:00)
[2016-10-29] VITALS (22 sets, daily range): BP systolic 131–161; BP diastolic 66–107; PULSE 88–150; RESP 18–20; TEMP 97.9–98.5; O2SAT 94–96
[2016-10-29] MEDS: metroNIDAZOLE 500 MG INJ 100 ML IV SCH ×2 (02:00→10:01)
[2016-10-29] MEDS: METOPROLOL TARTRATE 25 MG TAB PO SCH (06:00)
[2016-10-29] MEDS: POLYETHYLENE GLYCOL 17 GM PKG PO SCH ×2 (06:00)
[2016-10-29 06:39] LABS: BICARBONATE 23.1 MEQ/L (21.0-32.0); POTASSIUM 3.9 MEQ/L (3.5-5.1)
[2016-10-29] MEDS: ACETAMINOPHEN 325 MG TAB PO PRN (06:47)
[2016-10-29] MEDS: CIPROFLOXACIN 400 MG PREMIX 200 ML IV SCH (08:38)
[2016-10-29] MEDS: ASPIRIN EC 325 MG TABEC PO SCH (08:38)
[2016-10-29] MEDS: MEMANTINE HCL 5 MG TAB PO SCH (08:38)
[2016-10-29] MEDS: DONEPEZIL HCL 5 MG TAB PO SCH (08:39)
[2016-10-29] MEDS: SODIUM CHLORIDE 0.9% FLUSH 10 ML FLUSH IV FLUSH SCH (08:41)
[2016-10-29] MEDS: NS + KCL 20 MEQ INJ 1,000 ML IV SCH (09:49)
[2016-10-29] MEDS ORDERED: METOPROLOL TARTRATE 25 MG TAB PO ONE ×2 (10:45→15:00)
[2016-10-29] MEDS ORDERED: DILTIAZEM HCL 25 MG/5 ML VIAL IV ONE (10:45)
--- NOTE | 2016-10-29 10:53 | HHI.PR ---
Subjective Remarks no complains of abdominal pain, nausea or vomiting telemetry reviewed- HR ranges from 90s- low 100s very agitated Objective Vitals Vital Signs Date Time Temp Pulse Resp B/P Pulse Ox O2 Delivery O2 Flow Rate FiO2 10/29/16 08:46 98.4 109 20 145/104 95 10/29/16 06:12 115 10/29/16 05:00 103 10/29/16 04:30 98.5 113 18 161/107 96 10/29/16 04:03 110 10/29/16 02:09 118 10/29/16 01:00 107 10/29/16 00:00 98 10/29/16 00:00 98.3 103 18 131/66 96 10/28/16 23:00 98 10/28/16 22:00 96 10/28/16 21:00 100 10/28/16 20:00 120 10/28/16 20:00 98.5 119 24 159/101 96 10/28/16 19:00 110 10/28/16 18:03 115 10/28/16 17:07 97 10/28/16 16:14 89 10/28/16 15:12 98.0 107 16 127/74 94 10/28/16 15:12 101 10/28/16 14:00 95 10/28/16 13:59 98 10/28/16 12:37 96 10/28/16 11:27 98.3 102 16 149/97 95 10/28/16 11:27 99 I/O 10/28/16 10/28/16 10/28/16 10/29/16 10/29/16 10/29/16 07:00 15:00 23:00 07:00 15:00 23:00 Intake Total 1780 ml 710 ml 1334 ml Output Total 300 ml 650 ml Balance 1480 ml 710 ml 684 ml Intake Oral 480 ml 360 ml 480 ml IV Total 1300 ml 350 ml 854 ml Output Urine Total 300 ml 650 ml # Voids 2 3 # Bowel Movements 2 2 Result Diagram: 10/26/16 0409 10/29/16 0418 Imaging Last Impressions Abdomen/Pelvis CT 10/25/16 1534 Signed Impressions: Service Date/Time: Tuesday, October 25, 2016 17:05 - CONCLUSION: Acute moderate to severe sigmoid colon diverticulitis with a small intramural abscess. No drainable abscess. No perforation or obstruction. Sergey Hernandez MD Objective Remarks awake and alert, appears manic anicteric lungs clear irregular rhythm HR variable abdomen soft, nontender, good bowel sounds, no guarding or rigidity extremities no edema neuro exam- unremarkable A/P Problem List: (1) Diverticulitis of intestine with abscess ICD Code: K57.80 Status: Acute (2) Abdominal pain ICD Code: R10.9 Status: Acute (3) Dehydration ICD Code: E86.0 Status: Acute (4) HTN (hypertension) ICD Code: I10 Status: Acute (5) Dementia ICD Code: F03.90 Status: Acute Assessment and Plan 76 years old female, appears manic and highly excitable ? dementia. Had colonoscopies in the past - + diverticuloses per good friend Acute Diverticulitis w/ Intramural Abscess, seen on CT Abd/Pelvis. Dr. Westfall ff continue IV antibiotics. IVF. Advance diet tolerating well Dehydration: GFR 67, BUN 20, Creatinine normal. resolved. tolerating diet Atrial fibrillation,new onset. in RVR - exacerbated by her emotional/mental state Increase Lopressor to 25 mg po q 8. give Cardizem 20 mg IVP x 1 start drip . cardiology consult. get Echo. ?recommendation need for OAC. ?Candidate History of hypertension was on Bisoprolol/HCTz as OP. now on BB-and CCB for above Hypokalemia- corrected DVT Prophylaxis: SCD/Teds. patient up and ambulating Acute agitation underlying Dementia-- appears in a manic state with paranoid features. a friend at bedside who travels around with her . "volatile" character . Monitor. per friend patient was recently diagnosed with Dementia and patient very resentful of this diagnosis whenever this is mentioned Psychiatry consult for evaluation and recommendation- patient hesitant d/w patient and best friend at bedside needs to set up with a PCP in [place]- when arrived there 5:30 PM d/w daughter at length in presence of patient and staff- Judie will take her back to [facility]-HR 84/min BP 150/80 abdomen exam- benign, tolerating po needs to set up with a CRs there to ff up wioth a repeat Abdomeinal CT, ff up with cardiology- reaassess- ideally to be on OAC and set up to see a psychiatry for dementia with features of agitation daughter and patient expressed full understanding and agrees Problem Qualifiers (1) Diverticulitis of intestine with abscess: Qualified Code: K57.20 - Diverticulitis of large intestine with abscess, unspecified bleeding status Adria Borges MD October 29, 2016 10:53
--- NOTE | 2016-10-29 11:27 | HHI.PR ---
Subjective Remarks Diverticulitis comfortable, anxious Objective Vital Signs Date Time Temp Pulse Resp B/P Pulse Ox O2 Delivery O2 Flow Rate FiO2 10/29/16 08:46 98.4 109 20 145/104 95 10/29/16 06:12 115 10/29/16 05:00 103 10/29/16 04:30 98.5 113 18 161/107 96 10/29/16 04:03 110 10/29/16 02:09 118 10/29/16 01:00 107 10/29/16 00:00 98 10/29/16 00:00 98.3 103 18 131/66 96 10/28/16 23:00 98 10/28/16 22:00 96 10/28/16 21:00 100 10/28/16 20:00 120 10/28/16 20:00 98.5 119 24 159/101 96 10/28/16 19:00 110 10/28/16 18:03 115 10/28/16 17:07 97 10/28/16 16:14 89 10/28/16 15:12 98.0 107 16 127/74 94 10/28/16 15:12 101 10/28/16 14:00 95 10/28/16 13:59 98 10/28/16 12:37 96 I/O 10/28/16 10/28/16 10/28/16 10/29/16 10/29/16 10/29/16 07:00 15:00 23:00 07:00 15:00 23:00 Intake Total 1780 ml 710 ml 1334 ml Output Total 300 ml 650 ml Balance 1480 ml 710 ml 684 ml Intake Oral 480 ml 360 ml 480 ml IV Total 1300 ml 350 ml 854 ml Output Urine Total 300 ml 650 ml # Voids 2 3 # Bowel Movements 2 2 Result Diagram: 10/26/16 0409 10/29/16 0418 Objective Remarks Abdomen soft, nondistended, nontender Assessment and Plan Assessment and Plan Tolerating soft diet Home when ok with Medical Service Radha Westfall MD October 29, 2016 11:27
--- NOTE | 2016-10-29 13:33 | MB ---
cc: MINDA SMITH MD DATE OF CONSULTATION 10/29/2016 HISTORY This a 76-year-old woman admitted to the hospital with abdominal pain which was apparently present for approximately a month. On admission to the hospital she was felt to acute diverticulitis. She has been treated medically with antibiotics and fluids, actually feels much better. We have been asked to see her in that she has developed atrial fibrillation with somewhat rapid ventricular response. The patient has a history of high blood pressure and dementia. She is unsure whether she has had atrial fibrillation in the past. She is not sure what medications she has been on in the past as well. She denies any problems with chest pain or shortness of breath. No lightheadedness, dizziness or palpitations have been present. She has been given some small doses of metoprolol and diltiazem today to help control her heart rate which is currently under control. PAST MEDICAL HISTORY The patient's past medical history is as above. MEDICATIONS Her medications at home have included three medications for dementia. ALLERGIES None. SOCIAL HISTORY The patient does not smoke, drink or use recreational drugs. PHYSICAL EXAMINATION GENERAL: On physical exam she is awake and alert, in no distress. VITAL SIGNS: Her blood pressure is 120/80, pulse is approximately 90 and irregular. NECK: There is no neck vein distension. LUNGS: Her lungs are clear. CARDIOVASCULAR: Exam reveals an irregularly irregular rhythm. No significant murmur present. No gallop was noted. ABDOMEN: Soft. There is no tenderness or organomegaly. EXTREMITIES: Reveal no edema. ASSESSMENT The patient has atrial fibrillation. PLAN 1. We will increase her metoprolol to 50 mg twice a day to try to better control her rate. 2. Once her abdominal discomfort has resolved, I think she should be on anticoagulants to help prevent stroke in that her CHADS2-VASc score is 3. 3. I will also order an echocardiogram to rule out any occult left ventricular dysfunction. MD DONYA Worthington/LESIA /1:07 PM /1:21 PM
[2016-10-29] MEDS ORDERED: METOPROLOL TARTRATE 50 MG TAB PO SCH ×2 (14:00)
[2016-10-29] MEDS ORDERED: METOPROLOL TARTRATE 25 MG TAB PO SCH (14:00)
[2016-10-29] MEDS ORDERED: DILTIAZEM HCL 25 MG/5 ML VIAL IVP ONE (14:30)
[2016-10-29] MEDS ORDERED: SODIUM CHLORIDE 0.9% FLUSH 10 ML FLUSH PRN (14:30)
[2016-10-29] MEDS ORDERED: DILTIAZEM INJ 125 MG in SODIUM CHLORIDE 0.9% INJ 100 ML IV SCH (14:45)
--- NOTE | 2016-10-29 17:01 | EC ---
Study Study Date:10/29/2016 STUDY CONCLUSIONS SUMMARY - Left ventricle: The cavity size was normal. Wall thickness was normal. Systolic function was at the lower limits of normal. The estimated ejection fraction was in the range of 50% to 55%. - Aortic valve: Valve area: 1.78cm^2 (Vmax). - Mitral valve: Mild regurgitation. - Left atrium: The atrium was mildly dilated. - Right atrium: The atrium was moderately dilated. - Tricuspid valve: Mild regurgitation. If LV function is below 40, please consider prescribing an ACEI or ARB or document rationale for non-use. PROCEDURE DATA STUDY STATUS: Elective. Procedure: Transthoracic echocardiography. Image quality was good. Scanning was performed from the parasternal, apical, and subcostal acoustic windows. Study completion: The patient tolerated the procedure well. Transthoracic echocardiography. M-mode, complete 2D, complete spectral Doppler, and color Doppler. Height: Height: 65in. Weight: Weight: 155.7lb. Body mass index: BMI: 26kg/m^2. Body surface area: BSA: 1.78m^2. Patient status: Inpatient. CARDIAC ANATOMY LEFT VENTRICLE: Not well visualized. The cavity size was normal. Wall thickness was normal. Systolic function was at the lower limits of normal. The estimated ejection fraction was in the range of 50% to 55%. Images were inadequate for LV wall motion assessment. AORTIC VALVE: Probably trileaflet; normal thickness leaflets. Doppler: Transvalvular velocity was within the normal range. There was no stenosis. No regurgitation. Valve area: 1.78cm^2 (Vmax). Indexed valve area: 1cm^2/m^2 (Vmax). AORTA: Aortic root: The aortic root was normal in size. MITRAL VALVE: Structurally normal valve. Doppler: Transvalvular velocity was within the normal range. There was no evidence for stenosis. Mild regurgitation. LEFT ATRIUM: The atrium was mildly dilated. RIGHT VENTRICLE: The cavity size was normal. Wall thickness was normal. PULMONIC VALVE: Doppler: Transvalvular velocity was within the normal range. There was no evidence for stenosis. No regurgitation. TRICUSPID VALVE: Structurally normal valve. Doppler: Transvalvular velocity was within the normal range. Mild regurgitation. PULMONARY ARTERY: The main pulmonary artery was normal-sized. Systolic pressure was within the normal range. RIGHT ATRIUM: The atrium was moderately dilated. PERICARDIUM: There was no pericardial effusion. SYSTEMIC VEINS: Inferior vena cava: The vessel was normal in size. Patient weight: 155.7lb _Ejection fraction:_ 65-75% _Fractional shortening:_ 32% up to 5Kg 5-11.5Kg 11.6-22.9Kg 23-45Kg 45-57Kg Aortic Root 7-13 <17 13-22 17-27 17-27 LA diam 6-13 <23 24-38 33-47 37-40 RVID 10-17 7-15 7-15 7-18 8-17 LVIDd 12-22 <32 24-38 33-47 37-40 LVPW 2-4 3-6 5-7 6-8 7-8 IVS 2-4 3-6 5-7 6-8 7-8 BASIC MEASUREMENTS ADULT NORMAL Left ventricle LV internal dimension, ED, chordal *40.9 mm 43-52 level, PLAX LV internal dimension, ES, chordal 30.1 mm 23-38 level, PLAX Fractional shortening, chordal level, *26 % >29 PLAX LV posterior wall thickness, ED 9.82 mm IVS/LVPW ratio, ED 0.98 <1.3 Ventricular septum Septal thickness, ED 9.59 mm Aortic valve Leaflet separation 16 mm 15-26 BASIC MEASUREMENTS ADULT NORMAL Aortic valve Leaflet separation 16 mm 15-26 Aorta Root diameter, ED 23 mm 20-37 Left atrium Anterior-posterior dimension, ES 29 mm 19-40 Anterior-posterior dimension index, ES 1.63 cm/m^2 <2.2 LA/aortic root ratio 1.26 DOPPLER MEASUREMENTS ADULT NORMAL Main pulmonary artery Pressure, S 24 mm Hg =30 Aortic valve Peak velocity, S 125 cm/s Valve area, Vmax 1.78 cm^2 Valve area index, Vmax 1 cm^2/m^2 Mitral valve Maximal regurgitant velocity 522 cm/s Tricuspid valve Regurgitant peak velocity 203 cm/s Peak RV-RA gradient, S 16 mm Hg Maximal regurgitant velocity 203 cm/s Systemic veins Estimated CVP 10 mm Hg Right ventricle RV pressure, S 26 mm Hg <30 Pulmonic valve Peak velocity, S 77.4 cm/s LEGEND: Mean values are shown as u=mean value. Asterisk (*) isbell values outside specified normal range. Prepared and signed by Noble Vallejo [id number]
[2016-10-29] MEDS ORDERED: METO-309 PO (17:39)
[2016-10-29] MEDS ORDERED: ASPI325T33 PO (17:39)
[2016-10-29] MEDS ORDERED: CIPR500T2 PO (17:41)
[2016-10-29] MEDS ORDERED: METR-1 PO (17:42)
--- NOTE | 2016-10-29 17:47 | HHI.DS ---
Discharge Summary Admission Date October 25, 2016 at 19:13 Discharge Date: October 29, 2016 Admitting Diagnosis acute diverticulitis with abscess (1) Diverticulitis of intestine with abscess ICD Code: K57.80 Diagnosis: Principal (2) Dehydration ICD Code: E86.0 Diagnosis: Secondary (3) HTN (hypertension) ICD Code: I10 Diagnosis: Secondary (4) Dementia ICD Code: F03.90 Diagnosis: Principal (5) Atrial fibrillation ICD Code: I48.91 Diagnosis: Secondary Procedures none Brief History - From Admission This is a 76-year-old female with a PMH of HTN, Hyperlipidemia and Dementia who presented to the ER with complaints of abdominal pain for approx 1month. Also notes constipation w/ no recent BM in approx 10 days. Recently arrived from [facility] to visit a friend and was urged by friend to seek medical attention. Denies fever, chills, nausea, vomiting or diarrhea. On arrival, BP 140/97, HR 99, O2 sat 96% on RA, Afebrile. Chemistry essentially unremarkable except for GFR 67, BUN 20. UA trace LAE. CT Abd/Pelvis w/ acute moderate to severe sigmoid colon diverticulitis with small intramural abscess. Dr. Westfall consulted by ER physician, will evaluate in a.m. for possible intervention/ drainage. S/p Cipro/Flagyl in ER. CBC/BMP: 10/26/16 0409 10/29/16 0418 Significant Findings Laboratory Tests Test 10/28/16 10/29/16 08:00 04:18 Potassium Level 3.2 MEQ/L (3.5-5.1) Chloride Level 110 MEQ/L 113 MEQ/L (98-107) (98-107) Blood Urea Nitrogen 4 MG/DL (7-18) 5 MG/DL (7-18) Estimat Glomerular Filtration 79 ML/MIN (>89) 88 ML/MIN (>89) Rate Random Glucose 113 MG/DL (74-106) Calcium Level 8.0 MG/DL 8.2 MG/DL (8.5-10.1) (8.5-10.1) Imaging Last Impressions Abdomen/Pelvis CT 10/25/16 1534 Signed Impressions: Service Date/Time: Tuesday, October 25, 2016 17:05 - CONCLUSION: Acute moderate to severe sigmoid colon diverticulitis with a small intramural abscess. No drainable abscess. No perforation or obstruction. Sergey Hernandez MD PE at Discharge awake and alert, appears manic anicteric lungs clear irregular rhythm HR variable abdomen soft, nontender, good bowel sounds, no guarding or rigidity extremities no edema neuro exam- unremarkable Hospital Course 76 years old female, appears manic and highly excitable ? dementia. Had colonoscopies in the past - + diverticuloses per good friend Acute Diverticulitis w/ Intramural Abscess, seen on CT Abd/Pelvis. Dr. Westfall ff continue IV antibiotics. IVF. Advance diet tolerating well Dehydration: GFR 67, BUN 20, Creatinine normal. resolved. tolerating diet Atrial fibrillation,new onset. in RVR - exacerbated by her emotional/mental state Increase Lopressor to 25 mg po q 8. give Cardizem 20 mg IVP x 1 start drip . cardiology consult. get Echo. ?recommendation need for OAC. ?Candidate History of hypertension was on Bisoprolol/HCTz as OP. now on BB-and CCB for above Hypokalemia- corrected DVT Prophylaxis: SCD/Teds. patient up and ambulating Acute agitation underlying Dementia-- appears in a manic state with paranoid features. a friend at bedside who travels around with her . "volatile" character . Monitor. per friend patient was recently diagnosed with Dementia and patient very resentful of this diagnosis whenever this is mentioned Psychiatry consult for evaluation and recommendation- patient hesitant d/w patient and best friend at bedside needs to set up with a PCP in [place]- when arrived there 5:30 PM d/w daughter at length in presence of patient and staff- Judie will take her back to [facility]-HR 84/min BP 150/80 abdomen exam- benign, tolerating po needs to set up with a CRS there to ff up wioth a repeat Abdominal CT, ff up with cardiology- reassess- ideally to be on OAC and set up to see a psychiatry for dementia with features of agitation daughter and patient expressed full understanding and agrees Pt Condition on Discharge: Stable Discharge Disposition: Discharge Home Discharge Time: <= 30 minutes Discharge Instructions DIET: Follow Instructions for: Heart Healthy Diet, High Fiber Diet Additional Diet Instructions: no nuts, seeds Activities you can perform: Weight Bearing as Damian Follow up Referrals: Cardiology - 10/30/16 with own Colorectal Surgery with own-[facility] PCP Follow-up - Next Day with Angella New Medications: Ciprofloxacin (Ciprofloxacin) 500 Mg Tab 500 MG PO BID Infection Days 7 Ref 0 TAB Metronidazole (Flagyl) 500 Mg Tab 500 MG PO TID Infection Days 7 Ref [address] (Aspirin EC) 325 Mg Tabdr 325 MG PO DAILY afib Days 30 TAB Metoprolol Tartrate (Lopressor) 50 Mg Tab 50 MG PO Q12HR arrhy Days 30 TAB Continued Medications: Atorvastatin (Atorvastatin) 10 Mg Tab 10 MG PO HS Cholesterol Management #30 Ref 0 TAB Calcium Carbonate-Cholecalciferol (Caltrate 600+D) 600-800 Mg-Unit Tab 1 TAB PO BID Calcium Supplement Ref 0 TAB Cyanocobalamin (B-12) 2,500 Mcg Subl 2500 MCG SL DAILY Nutritional Supplement Ref 0 TAB.SL Donepezil (Aricept) 10 Mg Tab 10 MG PO DAILY Dementia #30 Ref 0 TAB Zbkgttrhxmf-Gztvcmxmdmn-Iyh C- (Glucosamine Chondroitin) 1 Cap Cap 1 CAP PO DAILY Memantine (Memantine) 5 Mg Tab 5 MG PO DAILY Alzheimer's Dementia Ref 0 TAB Mirtazapine (Mirtazapine) 15 Mg Tab 15 MG PO HS Depression Control #30 Ref 0 TAB [place]-3 Fatty Acids (Fish Oil) 500 Mg Cap Unknown Dose PO BID Discontinued Medications: Bisoprolol-Hydrochlorothiazide (Bisoprolol-Hydrochlorothiazide) 5-6.25 Mg Tab 1 TAB PO DAILY Blood Pressure Management #30 Ref 0 TAB Denosumab Inj (Prolia Inj) 60 Mg/Ml Inj 60 MG SQ Q180D Ref 0 VIAL Adria Borges MD October 29, 2016 17:47
== END 2016-10-29 19:00 | disposition home or self-care (01) | DRG 392 ==
LOC: NEPD 14:36 → NEDA 19:13 → NEPGCP 10-26 01:29 → HOCB 10-26 11:17 → HCIN 10-27 17:10
PROVIDERS: ADMIT Family Medicine; ATTEND Family Medicine
DX: K57.20 Diverticulitis of large intestine with perforation and abscess without bleeding (principal); I48.91 Unspecified atrial fibrillation; G30.9 Alzheimer's disease, unspecified; E86.0 Dehydration; F02.80 Dementia in other diseases classified elsewhere, unspecified severity, without behavioral disturbance, psychotic disturbance, mood disturbance, and anxiety; I10 Essential (primary) hypertension; E78.5 Hyperlipidemia, unspecified; E87.6 Hypokalemia; K59.00 Constipation, unspecified
CPT/HCPCS: 74177; 80048; 80053; 81001; 83690; 84443; 85025; 85610; 85730; 93005; 93306; 96361; 96374; 96375; J0744; J2060; J3480; J7030; Q9963; Q9967